=== PATIENT | male | born 1965 | race Caucasian/White ===

== ENCOUNTER 2019-11-04 09:53 | Emergency (ER) | payer SELFPAY ==
--- NOTE | 2019-11-04 10:18 | EDM.PDOC ---
ED HPI GENERAL MEDICAL PROBLEM - General Chief Complaint: Cardiovascular Problem Stated Complaint: PT CLAIMS HEART PAPLPATATIONS AND DIZZINESS Time Seen by Provider: 11/04/19 09:56 - History of Present Illness INITIAL COMMENTS - FREE TEXT/NARRATIVE: 4-year-old male presenting with now improved palpitations. He relates that he has had trouble with intermittent palpitations over the last 2 to 3 years. They seem to happen about once a month. He did present to an ER once for this complaint. He relates that at that time he was transferred to another hospital and had a coronary angiogram that he said was normal. He states that they "never really found anything wrong with [his] heart." Since that time he continues to have episodes monthly. He notes that they increase significantly when he has any caffeine. He continues to use nicotine but now avoids caffeine. They often happen after eating as well. This morning starting approximately 1 hour ago he had a particularly intense episode of uncomfortable palpitations that was associated with lightheadedness and shortness of breath but not near syncope or syncope. He denies any recent travel he denies any lower extremity pain or swelling. He states that the symptoms have improved at this time. No radiation no other associated symptoms. - Related Data Allergies Allergy/AdvReac Type Severity Reaction Status Date / Time Penicillins Allergy Cannot Verified 11/04/19 10:00 Remember Home Meds: Home Meds . [No Known Home Meds] 11/04/19 [History] Past Medical History - Past Health History Medical/Surgical History: Denies Medical/Surgical History - Infectious Disease History Infectious Disease History: Reports: None - Past Surgical History HEENT Surgical History: Reports: Tonsillectomy Other HEENT Surgeries/Procedures: Ear sugery GI Surgical History: Reports: Appendectomy, Cholecystectomy Social & Family History - Family History Family Medical History: Noncontributory - Caffeine Use Caffeine Use: Reports: None - Recreational Drug Use Recreational Drug Use: No ED ROS GENERAL - Review of Systems Review Of Systems: See Below Free Text/Narrative/Comment: General: No fever. Skin: No rash. Eyes: No vision problems. ENT: No sore throat. Neck: No neck stiffness. Respiratory: No shortness of breath. Cardiac: Per HPI Gastrointestinal: No nausea, vomiting or abdominal pain. Urinary: No dysuria. Musculoskeletal: No myalgias/arthralgias. Neurologic: No headache. ED EXAM, GENERAL - Physical Exam Exam: See Below Free Text/Narrative:: General Appearance: No acute distress, appears comfortable Skin: No rash HEENT: Normocephalic/atraumatic, sclera anicteric, mucous membranes moist Neck: Normal range of motion Chest and Lungs: Bilateral breath sounds, clear to auscultation Cardiovascular: Regular rate and rhythm, no murmur Abdomen: Soft, non-tender Back: Normal Musculoskeletal: No edema or tenderness Neurologic: Awake, alert, no obvious deficits, moving all extremities Psychiatric: Appropriate, cooperative EKG INTERPRETATION EKG Interpretation Comments: EKG obtained at 0957 demonstrates normal sinus rhythm with a rate of [address]-T wave changes that are not concerning for acute ischemia ND normal QRS duration normal QTC normal Course - Vital Signs Last Recorded V/S: Last Vital Signs Temp 97.1 F 11/04/19 10:01 Pulse 86 11/04/19 11:02 Resp 18 11/04/19 10:01 BP 117/62 11/04/19 11:02 Pulse Ox 98 11/04/19 11:02 - Orders/Labs/Meds Orders: Active Orders 24 hr Category Date Time Status EKG Documentation Completion [RC] STAT Care 11/04/19 10:23 Active Labs: Laboratory Tests 11/04/19 11/04/19 Range/Units 10:23 10:23 WBC 7.74 (4.0-11.0) K/uL RBC 4.75 (4.50-5.90) M/uL Hgb 14.7 (13.0-17.0) g/dL Hct 43.4 (38.0-50.0) % MCV 91.4 (80.0-98.0) fL MCH 30.9 (27.0-32.0) pg MCHC 33.9 (31.0-37.0) g/dL RDW Std Deviation 44.7 (28.0-62.0) fl RDW Coeff of Kristal 13 (11.0-15.0) % Plt Count 265 (150-400) K/uL MPV 8.90 (7.40-12.00) fL Neut % (Auto) 58.2 (48.0-80.0) % Lymph % (Auto) 28.3 (16.0-40.0) % Yates % (Auto) 8.7 (0.0-15.0) % Eos % (Auto) 4.3 (0.0-7.0) % Baso % (Auto) 0.5 (0.0-1.5) % Neut # (Auto) 4.5 (1.4-5.7) K/uL Lymph # (Auto) 2.2 (0.6-2.4) K/uL Yates # (Auto) 0.7 (0.0-0.8) K/uL Eos # (Auto) 0.3 (0.0-0.7) K/uL Baso # (Auto) 0.0 (0.0-0.1) K/uL Nucleated RBC % 0.0 /100WBC Nucleated RBCs # 0 K/uL Sodium 140 (136-148) mmol/L Potassium 4.2 (3.5-5.1) mmol/L Chloride 105 (98-107) mmol/L Carbon Dioxide 26.9 (21.0-32.0) mmol/L BUN 17 (7.0-18.0) mg/dL Creatinine 1.0 (0.8-1.3) mg/dL Est Cr Clr Drug Dosing 83.60 mL/min Estimated GFR (MDRD) > 60.0 ml/min Glucose 138 H (74-106) mg/dL Calcium 8.7 (8.5-10.1) mg/dL Magnesium 1.6 L (1.8-2.4) mg/dL Troponin I < 0.050 (0.000-0.056) ng/mL Meds: Medications Discontinued Medications Generic Name Dose Route Start Last Admin Trade Name Heidi PRN Reason Stop Dose Admin Magnesium Oxide 400 mg 11/04/19 11:15 Magnesium Oxide PO 11/04/19 11:16 ONETIME ONE Departure - Departure Time of Disposition: 11:24 Disposition: Home, Self-Care 01 Condition: Good Clinical Impression: Intermittent palpitations Instructions: Palpitations, [id number] Forms: ED Department Discharge Additional Instructions: As we discussed I recommend avoiding all caffeine. You do not drink alcohol this also would have the possibility of worsening your palpitations. If you can cut down on your nicotine consumption that would also likely help as nicotine is also a stimulant. If your symptoms recur and are severe and do not stop or if you develop severe chest pain with your symptoms or if you pass out with your symptoms and I urged you to call 911. Otherwise I encourage you to follow-up with your primary care doctor and cardiology to discuss placement of a Holter monitor or event monitor. Please be sure to try and obtained a primary care doctor and a cardiology appointment when you get back to [place]. Please be sure to take your magnesium as prescribed. The following information is given to patients seen in the emergency department who are being discharged to home. This information is to outline your options for follow-up care. We provide all patients seen in our emergency department with a follow-up referral. The need for follow-up, as well as the timing and circumstances, are variable depending upon the specifics of your emergency department visit. If you don't have a primary care physician on staff, we will provide you with a referral. We always advise you to contact your personal physician following an emergency department visit to inform them of the circumstance of the visit and for follow-up with them and/or the need for any referrals to a consulting specialist. The emergency department will also refer you to a specialist when appropriate. This referral assures that you have the opportunity for follow-up care with a specialist. All of these measure are taken in an effort to provide you with optimal care, which includes your follow-up. Under all circumstances we always encourage you to contact your private physician who remains a resource for coordinating your care. When calling for follow-up care, please make the office aware that this follow-up is from your recent emergency room visit. If for any reason you are refused follow-up, please contact the [facility] Emergency Department at and asked to speak to the emergency department charge nurse. Sepsis Event Note - Evaluation Sepsis Screening Result: No Definite Risk - Focused Exam Vital Signs: Vital Signs Temp Pulse Resp BP Pulse Ox 11/04/19 11:02 86 117/62 98 11/04/19 10:01 97.1 F 87 18 134/85 97 Date Exam was Performed: 11/04/19 Time Exam was Performed: 11:23 - My Orders Last 24 Hours: My Active Orders 11/04/19 10:23 EKG Documentation Completion [RC] STAT - Assessment/Plan Last 24 Hours: My Active Orders 11/04/19 10:23 EKG Documentation Completion [RC] STAT Assessment:: 54-year-old male presenting with palpitations. EKG has some nonspecific ST-T wave changes but there are no findings of acute ischemia. The machine registers an RSR prime I do see subtle Q waves in these 2 referenced leads. PE considered but there is no tachycardia there is no hypoxia there is no chest pain pleuritic or otherwise think this is unlikely. Certainly arrhythmia is a consideration malignant arrhythmia considered but without syncope or chest pain this is felt to be less likely. Labs including CBC, BMP, troponin and magnesium pending chest x-ray to evaluate for any signs of heart failure. If this is unremarkable and patient has no incidence on telemetry here he could likely be discharged and follow-up with his primary care provider or cardiology for consideration for Holter or event monitor. Other etiologies considered as well. Patient has had no episodes while on telemetry. Patient's labs are notable for a minimal hypomagnesemia and we will replete this orally. Patient will continue his standing magnesium prescription. He is actually moving back to [place] today. We discussed the importance of getting follow-up with a reference assistant and a primary care doctor when he gets home return precautions were discussed and understood.
[2019-11-04 10:57] LABS: BLOOD UREA NITROGEN,BUN 17 mg/dL (7.0-18.0); CARBON DIOXIDE,CO2 26.9 mmol/L (21.0-32.0); CHLORIDE,CL 105 mmol/L (98-107); GLUCOSE RANDOM 138 mg/dL (74-106); POTASSIUM,K 4.2 mmol/L (3.5-5.1); SODIUM,NA 140 mmol/L (136-148)
--- NOTE | 2019-11-04 11:10 | CR ---
Indication: Palpitations. Technique: AP portable view of the chest. Comparison: None Findings: The heart is normal in size. The lungs are clear. No infiltrate, pleural effusion, or pneumothorax is identified. Impression: No acute cardiopulmonary process. Dictated by Khushi Murray MD @ Nov 04 2019 11:08AM Signed by Dr. Khushi Murray @ Nov 04 2019 11:09AM
[2019-11-04] MEDS ORDERED: Magnesium Oxide 400 MG Tab PO ONE (11:15)
== END 2019-11-04 11:37 | disposition home or self-care (01) ==
LOC: MW.ED 09:53
DX: R00.2 Palpitations (principal); Z88.0 Allergy status to penicillin
CPT/HCPCS: 36415; 71045; 80048; 83735; 84484; 85025; 93005; 99285; A9270